=== PATIENT | female | born 1980 | race Caucasian/White ===

== ENCOUNTER 2016-12-04 17:14 | Emergency (ER) | payer OTHER ==
[~2016-12-04] VITALS: Ht 175.3 cm; Wt 158.0 kg
[~2016-12-04 17:14] MED LIST: FLEXERIL10 MG PO; NAPROSYN500 MG PO; PERCOCET 5/31 TABLET PO
[2016-12-04] MEDS ORDERED: LISINOPRIL30 MG PO (20:03)
[2016-12-04] MEDS ORDERED: HYDROCHLOROTHIA25 MG PO (20:03)
[2016-12-04 20:07] LABS: ADD MIUA? YES; BILIRUBIN NEGATIVE; BLOOD TRACE; COLOR YELLOW ((YELLOW)); GLUCOSE (STRIP) NEGATIVE; KETONES NEGATIVE; LEUKOCYTES NEGATIVE; NITRITE NEGATIVE; PROTEIN (STRIP) NEGATIVE; SPECIFIC GRAVITY 1.022 (1.000-1.030); UROBILINOGEN 0.2 MG/DL (0.2-1.0)
[2016-12-04 20:12] LABS: HEMATOCRIT 40.4 % (36.0-46.0); MCH 29.3 PG (29.0-34.0); MCHC 33.4 G/DL (30.0-36.0); MCV 87.8 FL (83-99); MEAN PLAT.VOLUME 11.8 uM^3 (9.5-12.4); PLATELET COUNT 147 K/uL (156-360); RBC DIS.WIDTH-CV 14.2 % (11.8-14.6); WHITE BLOOD COUNT 15.9 K/uL (4.1-10.2)
[2016-12-04 20:13] LABS: CHLORIDE 97 mEq/L (99-109); POTASSIUM 3.8 mEq/L (3.7-5.4); SODIUM 136 mEq/L (136-147)
[2016-12-04 20:15] LABS: GLUCOSE 139 mg/dL (70-99)
[2016-12-04 20:16] LABS: ANION GAP 7 MEQ/L (2-14)
[2016-12-04 20:19] LABS: GFR ESTIMATE (CALCULATED) > 59 mL/min/
[2016-12-04 20:20] LABS: UREA NITROGEN (BUN) 11 mg/dL (9-23)
[2016-12-04 20:21] LABS: CREATINE KINASE 57 IU/L (1-294)
[2016-12-04 20:22] VITALS: BP 126/93
[2016-12-04 20:34] LABS: BACTERIA RARE /HPF; CASTS NONE SEEN /LPF; CRYSTALS NONE SEEN; EPITHELIAL CELLS RARE /HPF; MUCUS NONE SEEN /LPF; WHITE BLOOD CELLS 0-5 /HPF (0-5)
[2016-12-04] MEDS ORDERED: ULTRACET1 TABLET PO (20:47)
[2016-12-04] MEDS ORDERED: VALIUM5 MG PO (20:47)
[2016-12-04] MEDS ORDERED: MOTRIN800 MG PO (20:47)
== END 2016-12-04 21:14 | disposition home or self-care (01) ==
LOC: RME 17:14 → EME 17:14 → RME 21:14
PROVIDERS: Physician Assistant
DX: M79.89 Other specified soft tissue disorders (principal); R25.2 Cramp and spasm; D72.829 Elevated white blood cell count, unspecified; F17.200 Nicotine dependence, unspecified, uncomplicated; Z88.2 Allergy status to sulfonamides; Z88.6 Allergy status to analgesic agent
CPT/HCPCS: 80048; 81003; 82550; 85027; 93971; 99281; 99284; J1885; J3010